=== PATIENT | female | born 1975 | race Caucasian/White ===

== ENCOUNTER → 2018-02-09 | Outpatient (CLI) | payer OTHER ==
--- NOTE | 2018-02-12 07:52 | MM ---
Reason for exam: additional evaluation requested from abnormal screening. Last mammogram was performed 1 month ago. Physical Findings: Nurse did not find any significant physical abnormalities on exam. MG 3D Diag Mammo W/Cad RT Spot compression CC, spot compression MLO, and LM view(s) were taken of the right breast. Prior study comparison: January 22, 2018, mammogram. December 20, 2016, mammogram. August 29, 2008, bilateral digital screening mammogram. The breast tissue is heterogeneously dense. This may lower the sensitivity of mammography. There is no discrete abnormality including area of concern. These results were verbally communicated with the patient and result sheet given to the patient on 02/09/18. ASSESSMENT: Probably benign, BI-RAD 3 RECOMMENDATION: Follow-up diagnostic mammogram of the right breast in 6 months.
== END | disposition home or self-care (01) ==
LOC: RADMAMWWP 14:47
PROVIDERS: ATTEND Obstetrics & Gynecology
DX: R92.8 Other abnormal and inconclusive findings on diagnostic imaging of breast (principal)
CPT/HCPCS: 77065; G0279

== ENCOUNTER → 2018-03-06 | Outpatient (CLI) | payer OTHER ==
--- NOTE | 2018-03-06 08:31 | US ---
EXAMINATION TYPE: US liver DATE OF EXAM: 03/06/2018 COMPARISON: 04/08/2015 CLINICAL HISTORY: 42-year-old female with right upper quad pain R10.11. RUQ pain x couple months, blo ating Technique: Multiple sonographic images of the right upper quadrant are obtained. FINDINGS: Liver Length: 13.2 cm Gallbladder Wall: 0.2 cm CBD: 0.4 cm Right Kidney: 11.6 x 4.0 x 4.6 cm Pancreas: visualized portions wnl, tail limited by overlying midline bowel gas Liver: Normal size with normal homogeneous echotexture. No focal lesion. Gallbladder: wnl Evidence for sonographic Hightower's sign: no CBD: wnl Right Kidney: No hydronephrosis. Visualized portions wnl, inferior pole limited by overlying bowel g as IMPRESSION: Limited visualization of the pancreatic tail and lower pole right kidney. Otherwise, unremarkable so nographic examination of the right upper quadrant.
== END | disposition home or self-care (01) ==
LOC: RADUSWWP 06:54
PROVIDERS: ATTEND Internal Medicine
DX: R10.11 Right upper quadrant pain (principal)
CPT/HCPCS: 76705

== ENCOUNTER 2018-04-18 08:12 | Day surgery (SDC) | payer OTHER ==
[~2018-04-18 08:12] MED LIST: LACTATED RINGERS 1,000 ML IV SCH; LIDOCAINE 1% 20 ML VIAL (10MG/ML) FOR IV START INTRADERMA PRN
[2018-04-18 08:56] VITALS: RESP 18; TEMP 98.8
[2018-04-18] MEDS ORDERED: LACTATED RINGERS 1,000 ML IV ONE (08:56)
[2018-04-18] MEDS ORDERED: PROPOFOL 10 MG/ML 20 ML VIAL IV ONE (09:01)
--- NOTE | 2018-04-18 09:23 | P.PCN ---
Date of Procedure: 04/18/18 Procedure(s) Performed: Brief history: Patient is a pleasant 42-year-old white female, scheduled for an elective upper endoscopy as well as colonoscopy as a part of evaluation of iron deficiency anemia. She denies any GI symptoms. Procedure performed: Esophagogastroduodenoscopy with biopsy Colonoscopy Preoperative diagnosis: Iron deficiency anemia. Anesthesia: MAC Procedure: After informed consent was obtained from the patient was brought into the endoscopy unit and IV sedation was administered by anesthesia under continuous monitoring. Initially upper endoscopy was done. The Olympus GF 160 video endoscope was inserted inserted into the mouth and esophagus intubated without any difficulty and was gradually advanced into the stomach and duodenum and carefully examined. The bulb and second part of the duodenum appeared normal. A 5 mL done from the duodenum to rule out celiac disease. The scope was then withdrawn into the stomach adequately insufflated with air and upon careful examination the antrum had mild patchy areas of erythema and biopsies were done from this area. The body, cardia and fundus appeared normal. The scope was then withdrawn into the esophagus. The GE junction was located at 40 cm to the incisors. It appeared regular with no erythema erosions or ulcerations. Rest of the esophagus appeared normal. Patient tolerated the procedure well. At this time the patient continued to remain sedation. Initial digital rectal examination was normal. Olympus CF 160 video colonoscope was then inserted into the rectum and gradually advanced to the cecum without any difficulty. Careful examination was performed as the scope was gradually being withdrawn. The prep was excellent. terminal ileum was intubated and 20 cm visualized and appeared normal. The cecum, ascending colon, transverse colon, descending colon, sigmoid colon and rectum appeared normal. Retroflexion was performed in the rectum and no lesions were noted. Patient tolerated the procedure well. Impression: 1. Upper endoscopy revealed minimal antral gastritis but no evidence of esophagitis or peptic ulcer disease 2. Colonoscopy was essentially within normal limits with no evidence of colitis or colorectal neoplasia. Recommendations: Findings of this examination were discussed with the patient as well as her family. She was advised to follow with the biopsy results. She will start on iron supplements on a daily basis and monitor his CBC periodically.
[2018-04-18 09:50] VITALS: BP 105/68; PULSE 77
== END 2018-04-18 10:26 | disposition home or self-care (01) ==
LOC: ORWHC2ENDO 08:12
PROVIDERS: ATTEND Internal Medicine Gastroenterology
DX: K29.50 Unspecified chronic gastritis without bleeding (principal); D50.9 Iron deficiency anemia, unspecified; Z87.891 Personal history of nicotine dependence; Z79.899 Other long term (current) drug therapy
CPT/HCPCS: 88305; 45378; 43239; J2704

== ENCOUNTER → 2018-08-13 | Outpatient (CLI) | payer OTHER ==
--- NOTE | 2018-08-13 10:55 | MM ---
Reason for exam: additional evaluation requested from prior study. Last mammogram was performed 6 months ago. Physical Findings: Nurse did not find any significant physical abnormalities on exam. MG 3D Diag Mammo W/Cad RT CC, MLO, and ML view(s) were taken of the right breast. Prior study comparison: February 09, 2018, right breast MG 3d diag mammo w/cad RT. January 22, 2018, mammogram. The breast tissue is heterogeneously dense. This may lower the sensitivity of mammography. No significant new findings when compared with previous films. These results were verbally communicated with the patient and result sheet given to the patient on 08/13/18. ASSESSMENT: Incomplete: need additional imaging evaluation, BI-RAD 0 RECOMMENDATION: Ultrasound of the right breast. (as ordered)
--- NOTE | 2018-08-13 10:57 | USB ---
Reason for exam: additional evaluation requested from abnormal screening. US Breast RT Right complete breast ultrasound includes all four quadrants, the retroareolar region and axilla. Finding demonstrates a 3 x 3 x 3mm hypoechoic lesion at 10 o'clock and a 4 x 3 x 4mm hypoechoic lesion at 11 o'clock. These are too small to characterize and can be reassessed in 6 months. These results were verbally communicated with the patient and result sheet given to the patient on 08/13/18. ASSESSMENT: Probably benign, BI-RAD 3 RECOMMENDATION: Follow-up diagnostic mammogram of both breasts in 6 months. Ultrasound of the right breast in 6 months. [facility]
== END ==
LOC: RADMAMWWP 09:29
PROVIDERS: ATTEND Obstetrics & Gynecology
DX: R92.8 Other abnormal and inconclusive findings on diagnostic imaging of breast (principal)
CPT/HCPCS: 77061; 77065

== ENCOUNTER → 2019-03-11 | Outpatient (CLI) | payer OTHER ==
--- NOTE | 2019-03-12 07:53 | MM ---
Reason for exam: follow-up at short interval from prior study. Last mammogram was performed 7 months ago. History: Taking other hormone for 1 month. Physical Findings: Nurse did not find any significant physical abnormalities on exam. MG 3D Diag Mammo W/Cad KILO Bilateral CC and MLO view(s) were taken. Prior study comparison: August 13, 2018, right breast MG 3d diag mammo w/cad RT. February 09, 2018, right breast MG 3d diag mammo w/cad RT. The breast tissue is heterogeneously dense. This may lower the sensitivity of mammography. Stable to slightly larger circumscribed mass, likely cyst anterior upper outer quadrant left breast. No significant new findings when compared with previous films. These results were verbally communicated with the patient and result sheet given to the patient on 03/11/19. ASSESSMENT: Incomplete: need additional imaging evaluation, BI-RAD 0 RECOMMENDATION: Ultrasound of the right breast. (for pain as ordered) RAMONA
--- NOTE | 2019-03-12 07:55 | USB ---
Reason for exam: follow-up at short interval from prior study. History: Taking other hormone for 1 month. US Breast RT Right complete breast ultrasound includes all four quadrants, the retroareolar region and axilla. Finding demonstrates a 0.4 x 0.3 x 0.4cm hypoechoic lesion at 10 o'clock versus 3mm previously and a 0.4 x 0.3 x 0.4cm hypoechoic lesion at 11 o'clock versus 4mm previously. 1 year diagnostic follow up recommended. These results were verbally communicated with the patient and result sheet given to the patient on 03/11/19. ASSESSMENT: Probably benign, BI-RAD 3 RECOMMENDATION: Follow-up diagnostic mammogram of both breasts in 1 year. (total 2 year follow up right breast)
== END | disposition home or self-care (01) ==
LOC: RADMAMWWP 13:28
PROVIDERS: ATTEND Obstetrics & Gynecology
DX: R92.8 Other abnormal and inconclusive findings on diagnostic imaging of breast (principal)
CPT/HCPCS: 77062; 77066

== ENCOUNTER → 2019-07-30 | Outpatient (CLI) | payer OTHER ==
[2019-07-30 16:00] LABS: Basophils # (A) 0.1 k/uL (0-0.2); Basophils % (A) 1 %; Eosinophils # (A) 0.2 k/uL (0-0.7); Eosinophils % (A) 2 %; HGB 11.7 gm/dL (11.4-16.0); Lymphocytes # (A) 2.6 k/uL (1.0-4.8); Lymphocytes % (A) 32 %; MCH 25.8 pg (25.0-35.0); MCHC 31.6 g/dL (31.0-37.0); MCV 81.6 fL (80.0-100.0); Mean Platelet Volume 7.4; Monocytes # (A) 0.5 k/uL (0-1.0); Monocytes % (A) 6 %; Neutrophils # (A) 4.8 k/uL (1.3-7.7); Neutrophils % (A) 57 %; Platelet Count 326 k/uL (150-450); RBC 4.53 m/uL (3.80-5.40); RDW 14.6 % (11.5-15.5); WBC 8.3 k/uL (3.8-10.6)
== END | disposition home or self-care (01) ==
LOC: LABWHC1 15:33
PROVIDERS: ATTEND Obstetrics & Gynecology
DX: Z01.812 Encounter for preprocedural laboratory examination (principal); N84.0 Polyp of corpus uteri; N94.6 Dysmenorrhea, unspecified; N92.0 Excessive and frequent menstruation with regular cycle
CPT/HCPCS: 36415; 85025

== ENCOUNTER 2019-08-06 07:52 | Day surgery (SDC) | payer OTHER ==
[2019-08-02 18:16] VITALS: BMI 24.7
[~2019-08-06 07:52] MED LIST changes: +DEXAMETHASONE SOD PHOSPHATE 10 MG/ML 1 ML VIAL IV ONE; +Pre Op ABX Message 1 EACH MISC MISCELLANE ONE; +SCOPOLAMINE 1.5MG/72HR PATCH TRANSDERM ONE
[2019-08-06] MEDS: ONDANSETRON 4 MG/2 ML VIAL IVP ONE ×2 (08:32→10:24)
[2019-08-06] MEDS ORDERED: fentaNYL (PF) 50 MCG/ML 2 ML AMP ONE (09:33)
[2019-08-06] MEDS ORDERED: MIDAZOLAM 2 MG/2 ML VIAL ONE (09:33)
[2019-08-06] MEDS ORDERED: PROPOFOL 10 MG/ML 20 ML VIAL IV ONE (09:33)
[2019-08-06] MEDS ORDERED: LIDOCAINE 1% INJ 10MG/ML (20 ML MDV) ONE (09:33)
[2019-08-06] MEDS ORDERED: KETOROLAC 30 MG/ML 1 ML VIAL ONE (09:33)
[2019-08-06] MEDS ORDERED: SUCCINYLCHOLINE CHLORIDE 100 MG/5 ML SYR IV ONE (09:33)
--- NOTE | 2019-08-06 10:05 | P.OP ---
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 The appropriate timeout is performed to assure proper patient and procedural identification. Urine hCG is negative. The cervix, vagina, perineal bodies are all prepped and draped in usual sterile fashion. Examination under anesthesia reveals a small anteverted uterus, negative adnexa bilaterally. The bladder is drained for approximately 400 mL of clear yellow urine. Weighted speculum was placed into the vagina and the anterior lip of the cervix is grasped with a double-tooth tenaculum. Uterus sounds to a depth of 12 cm in the anteverted position. Cervix is gently and systematically dilated using Hanks dilators. The hysteroscope was then introduced and the cavity is distended with sterile saline. Inspection of the cavity reveals a fair amount of shaggy-appearing proliferative tissue, along with several endometrial polyps. The hysteroscope was removed. A medium sharp curette is used and the polyps are removed along with the endometrial curettings. At this time the NovaSure wand is placed and seated. Uterine width of 4.3 cm, length of 6.5 cm is calibrated into the machine. The machine is properly enabled, and for 53 seconds with a power of 154 W the procedure is carried out. When the machine turns off the wand is removed. Hysteroscope was once again placed and the cavity is distended, and is noted to be uniformly blanched. Cervix is clean and dry upon removal of the tenaculum. All sponge needle and instrument counts are correct. Toradol is given prior to leaving the operative suite. Patient is brought back to recovery room in very good condition with stable vital signs including a blood pressure of 122/84 a pulse of 8100% O2 sa turation. Patient will follow-up with me in the office in 2 weeks.
[2019-08-06 10:15] VITALS: TEMP 97
[2019-08-06] MEDS: HYDROmorphone 0.5 MG/0.5 ML SYRINGE IVP PRN ×2 (10:24→10:35)
[2019-08-06 11:17] VITALS: BP 115/73; PULSE 84; RESP 18
== END 2019-08-06 11:38 | disposition home or self-care (01) ==
LOC: OR 07:52
PROVIDERS: ATTEND Obstetrics & Gynecology
DX: N84.0 Polyp of corpus uteri (principal); N92.0 Excessive and frequent menstruation with regular cycle; N94.6 Dysmenorrhea, unspecified; N81.6 Rectocele; Z98.51 Tubal ligation status; B00.9 Herpesviral infection, unspecified; Z83.511 Family history of glaucoma; Z80.8 Family history of malignant neoplasm of other organs or systems; Z87.891 Personal history of nicotine dependence; Z79.899 Other long term (current) drug therapy; Z88.0 Allergy status to penicillin
CPT/HCPCS: 81025; 88305; 58563; J2250; J1100; J2405; J2001; J3010; J1885; J0330; J2704; J1170

== ENCOUNTER → 2020-06-12 | Outpatient (CLI) | payer OTHER ==
--- NOTE | 2020-06-12 12:23 | MM ---
Reason for exam: additional evaluation requested from prior study. Last mammogram was performed 1 year and 3 months ago. History: Taking other hormone for 1 month. Physical Findings: Nurse Summary: 2cm nodule in the left breast at 1 o'clock (nurse colin). MG 3D Diag Mammo W/Cad KILO Bilateral CC and MLO view(s) were taken. Prior study comparison: March 11, 2019, bilateral MG 3d diag mammo w/cad KILO. August 13, 2018, right breast MG 3d diag mammo w/cad RT. The breast tissue is heterogeneously dense. This may lower the sensitivity of mammography. Finding: There is a typically benign 17 mm equal density (isodense), circumscribed oval mass in the subareolar position of the left breast enlarged from comparison. New finding since March 11, 2019 and August 13, 2018. These results were verbally communicated with the patient and result sheet given to the patient on 06/12/20. ASSESSMENT: Incomplete: need additional imaging evaluation, BI-RAD 0 RECOMMENDATION: Ultrasound of the left breast.
--- NOTE | 2020-06-12 12:26 | USB ---
Reason for exam: additional evaluation requested from abnormal screening. History: Taking other hormone for 1 month. US Breast Limited BILAT Right limited breast ultrasound including focal area of concern, retroareolar and axilla demonstrates a 0.3 x 0.4 x 0.2cm cystic lesion at 10 o'clock and a 0.4 x 0.4 x 0.2cm cystic, complex lesion at 11 o'clock, consider biopsy. Left limited breast ultrasound including focal area of concern, retroareolar and axilla demonstrates a 3.2 x 3.0 x 1.2cm solid, hypoechoic, vascular lesion at 1 o'clock. These results were verbally communicated with the patient and result sheet given to the patient on 06/12/20. ASSESSMENT: Suspicious, BI-RAD 4 RECOMMENDATION: Ultrasound core biopsy of the left breast. (anterior) Called Dr. Vasquez's office with mammographic findings and has scheduled an appointment for the patient for 07/08/[address] Quiroz. Biopsy scheduled for 06/23/20 at 1:00. PRELIMINARY REPORT CALLED AND FAXED TO DR. QUIROZ ON 06/12/20.
== END | disposition home or self-care (01) ==
LOC: RADMAMWWP 10:18
PROVIDERS: ATTEND Obstetrics & Gynecology
DX: R92.8 Other abnormal and inconclusive findings on diagnostic imaging of breast (principal)
CPT/HCPCS: 77066; 76642; G0279; 77062

== ENCOUNTER → 2020-06-23 | Day surgery (SDC) | payer OTHER ==
[2020-06-23 12:26] VITALS: RESP 16
[2020-06-23 13:27] VITALS: BP 124/81; PULSE 77; TEMP 98.7
--- NOTE | 2020-06-23 14:37 | USB ---
EXAMINATION TYPE: US biopsy breast VAD LT, MG diagnostic mammo LT wo CAD DATE OF EXAM: 06/23/2020 CLINICAL HISTORY: R92.8 abnormal mammogram. TECHNIQUE: Ultrasound guided core biopsy of left 1:00 breast. COMPARISON: NONE FINDINGS: The procedure of ultrasound guided core biopsy was explained to the patient. Benefits, alt ernatives, and risks were discussed. An informed consent was then obtained. The patient was placed in supine positioning for imaging and for the procedure. The overlying skin w as prepped and draped in usual sterile fashion. Lidocaine buffered with bicarbonate was used as anes thetic into the skin and subcutaneous tissue up to area of concern in the left 1:00 breast. A samir w as made with surgical scalpel. Under ultrasound guidance, a 12-gauge vacuum assisted biopsy gun device was used to obtain 3 core mayte ples. Following this, a biopsy clip was left in lesion. The patient tolerated the procedure well without any immediate complication. The patient was kept in the radiology department for short stay after the procedure and then discharged home in stable condi tion. IMPRESSION: Successful, uncomplicated ultrasound guided core biopsy of area of concern in the left 1: 00 breast, full pathology results to follow.
== END ==
LOC: RADUSWWP 11:55
PROVIDERS: ATTEND Surgery
DX: N60.12 Diffuse cystic mastopathy of left breast (principal); R92.8 Other abnormal and inconclusive findings on diagnostic imaging of breast
CPT/HCPCS: 19083; 77065; 88305; A4648; J2001

== ENCOUNTER 2020-07-24 07:45 | Day surgery (SDC) | payer OTHER ==
[2020-07-21 10:41] VITALS: BMI 25.0
[~2020-07-24 07:45] MED LIST changes: +ACETAMINOPHEN TAB 500 MG TAB PO ONE; +HEPARIN SODIUM,PORCINE 5,000 UNIT/ML 1 ML VIAL SQ ONE; +HYDROmorphone 0.5 MG/0.5 ML SYRINGE IVP PRN; +LIDOCAINE 1% (10MG/ML) FOR IV START INTRADERMA PRN; -LIDOCAINE 1% 20 ML VIAL (10MG/ML) FOR IV START INTRADERMA PRN; +MIDAZOLAM 2 MG/2 ML VIAL IV PRN; +ONDANSETRON 4 MG/2 ML VIAL IVP ONE; -SCOPOLAMINE 1.5MG/72HR PATCH TRANSDERM ONE
[2020-07-24] MEDS ORDERED: ONDANSETRON 4 MG/2 ML VIAL ONE (08:11)
[2020-07-24] MEDS ORDERED: HEPARIN SODIUM,PORCINE 5,000 UNIT/ML 1 ML VIAL ONE (08:11)
[2020-07-24] MEDS ORDERED: ACETAMINOPHEN TAB 500 MG TAB ONE (08:12)
[2020-07-24] MEDS ORDERED: ALPRAZolam 0.5 MG TAB ONE (08:25)
[2020-07-24] MEDS ORDERED: ALPRAZolam 0.5 MG TAB PO ONE (08:34)
--- NOTE | 2020-07-24 08:55 | P.GSHP ---
History of Present Illness H&P Date: 07/24/20 Chief Complaint: Abnormal left breast mammogram 44-year-old female was seen in early June after breast workup showed a 17 mm left breast mass. Ultrasound showed a 3.2 x 3 cm solid lesion at 1:00. She then underwent core biopsy left breast. Findings revealed benign breast parenchyma and background pash. After discussing the case with radiology the biopsy results were felt to be discordant to the imaging studies. For that reason wire localization biopsy was suggested and scheduled. Past Medical History Past Medical History: No Reported History Additional Past Medical History / Comment(s): GENITAL HERPES. Hx Migraines. History of Any Multi-Drug Resistant Organisms: None Reported Past Surgical History: Section, Tubal Ligation, Uterine Ablation Additional Past Surgical History / Comment(s): Pilonidal cyst, Colonoscopy, EGD, Dental extractions. Past Anesthesia/Blood Transfusion Reactions: Motion Sickness Past Psychological History: No Psychological Hx Reported Smoking Status: Former smoker Past Alcohol Use History: Occasional Additional Past Alcohol Use History / Comment(s): SMOKED FOR 10 YRS, QUIT 2007, 1/2 PPD. Additional Drug Use History / Comment(s): CBD Oil use. Aware no use 24 hrs prior to procedure. - Past Family History Father Family Medical History: Cancer Additional Family Medical History / Comment(s): Skin CA. Sister(s) Family Medical History: Cancer Additional Family Medical History / Comment(s): Thyroid Cancer. Medications and Allergies Home Medications Medication Instructions Recorded Confirmed Type Cholecalciferol [Vitamin D3] 1 tab PO DAILY 04/13/18 07/24/20 History [place]-3 Fatty Acids/Fish Oil [Fish 1 tab PO DAILY 04/13/18 07/24/20 History Oil 1,000 mg Softgel] Turmeric Root Extract [Turmeric] 1 tab PO DAILY 04/13/18 07/24/20 History Vitamin B Complex 1 tab PO DAILY 04/13/18 07/24/20 History Aspirin/Acetaminophen/Caffeine 1 each PO DIRECTED PRN 08/02/19 07/24/20 History [Excedrin Migraine Caplet] Cbd Oil 1 applic PO DIRECTED 08/02/19 07/24/20 History Diflucan (Unknown Dose) 1 tab PO DIRECTED PRN 08/02/19 07/24/20 History Femarin 1 tab PO DAILY 08/02/19 07/24/20 History Iron (Unknown Dose) 1 tab PO DAILY 08/02/19 07/24/20 History Thyroid Health 1 tab PO DAILY 08/02/19 07/24/20 History Vitamin B-12 (Unknown Dose) 1 tab PO DAILY 08/02/19 07/24/20 History valACYclovir HCL [Valtrex] 500 mg PO Q12HR PRN 08/02/19 07/24/20 History Allergies Allergy/AdvReac Type Severity Reaction Status Date / Time No Known Allergies Allergy Verified 07/21/20 10:31 Surgical - Exam Vital Signs Temp Pulse Resp BP Pulse Ox 97.9 F 102 H 16 159/84 96 07/24/20 08:25 07/24/20 08:25 07/24/20 08:25 07/24/20 08:25 07/24/20 08:25 Physical exam: General: Well-developed, well-nourished HEENT: Normocephalic, sclerae nonicteric Right breast: No masses, no adenopathy Left breast: Mild induration a recent biopsy site, no adenopathy Abdomen: Nontender, nondistended Extremities: No edema Neuro: Alert and oriented Assessment and Plan (1) Abnormal mammogram of left breast Narrative/Plan: Options reviewed with the patient by phone after discussion with radiology. Short-term follow-up versus wire localization biopsy discussed. We have decided to proceed with wire localization left breast biopsy at this time. Risks of bleeding, infection, scarring, numbness, possible need for further surgery reviewed. She understands and wishes to proceed. Current Visit: Yes Status: Acute Code(s): R92.8 - OTH ABN AND INCONCLUSIVE FINDINGS ON DX IMAGING OF BREAST SNOMED Code(s): 096133775
[2020-07-24] MEDS ORDERED: LIDOCAINE 1% INJ 10MG/ML (20 ML MDV) SQ ONE (09:36)
[2020-07-24] MEDS ORDERED: PROPOFOL 10 MG/ML 20 ML VIAL IV ONE (10:21)
[2020-07-24] MEDS ORDERED: fentaNYL (PF) 50 MCG/ML 2 ML AMP ONE (10:21)
[2020-07-24] MEDS ORDERED: MIDAZOLAM 2 MG/2 ML VIAL ONE (10:21)
[2020-07-24] MEDS ORDERED: LIDOCAINE 1% INJ 10MG/ML (20 ML MDV) ONE (10:21)
[2020-07-24] MEDS ORDERED: ceFAZolin 1,000 MG VIAL ONE (10:21)
[2020-07-24] MEDS ORDERED: SODIUM CHLORIDE 0.9% 100 ML with ceFAZolin 2,000 MG IV ONE ×2 (10:26)
[2020-07-24] MEDS ORDERED: BUPIVACAINE (PF) 0.25% 30 ML VIAL SQ ONE ×2 (10:26→10:45)
[2020-07-24 11:17] VITALS: TEMP 97.5
--- NOTE | 2020-07-24 11:21 | MM ---
EXAMINATION TYPE: MG pre op needle loc LT, MG surgical specimen LT DATE OF EXAM: 07/24/2020 10:21 AM COMPARISON: NONE HISTORY: Clip localization Informed consent was obtained and all the patient's questions were answered. The clip in question was localized mammographically. The standard sterile technique was utilized, as well as appropriate local anesthesia with 1% Lidocaine and bicarbonate. Localization needle followed by placement of a guidewire was performed under mammographic guidance. Verification images demonstrate appropriate deployment of the guidewire. The patient tolerated the procedure well and left the department in stable condition. Specimen radiograph demonstrates the clip in question to reside within the specimen. IMPRESSION: Successful needle localization and open biopsy left breast with pathology results pending . Pathology Results: Benign LEFT BREAST, NEEDLE LOCALIZATION EXCISION: Benign breast with fibrocystic changes, pseudoangiomatous stromal hyperplasia (PASH) and previous biopsy site. Recommendation Follow up ultrasound of the left breast in 6 months. RAMONA
[2020-07-24] MEDS ORDERED: HYDROcodone/APAP 5-325MG 1 EACH TAB PO PRN (11:25)
[2020-07-24] MEDS ORDERED: NALOXONE 0.4 MG/ML 1 ML VIAL IV PRN (11:25)
--- NOTE | 2020-07-24 11:28 | P.OP ---
Date of Procedure: 07/24/20 Procedure(s) Performed: PREOPERATIVE DIAGNOSIS: Abnormal left mammogram POSTOPERATIVE DIAGNOSIS: Same PROCEDURE: Left Breast wire localization biopsy SURGEON: Richie EBL: Minimal ANESTHESIA: Sedation plus local COMPLICATIONS: None OPERATIVE PROCEDURE: Patient was placed on the operating room table in the sup ine position. The patient's breast was prepped and draped in usual sterile fashion. A curvilinear incision was made adjacent to the ere areola. The wire was then dissected and brought out through the incision. I followed the wire down into the breast tissue. The breast tissue around the tip of the wire was fully excised using electrocautery. The specimen was sent for specimen radiogram. As we were dissecting the tissues of the clip was identified and was included with the specimen. The subcutaneous tissues were inspected. No bleeding was seen. The subcutaneous tissues were closed using 3-0 Vicryl sutures. The skin was closed using a running 4-0 Monocryl stitch. Skin glue and sterile dressings were applied. DISPOSITION: Stable to recovery room
[2020-07-24 12:13] VITALS: RESP 18
[2020-07-24 12:41] VITALS: BP 123/67; PULSE 78
== END 2020-07-24 12:43 | disposition home or self-care (01) ==
LOC: OR 07:45
PROVIDERS: ATTEND Surgery
DX: N60.12 Diffuse cystic mastopathy of left breast (principal); N64.89 Other specified disorders of breast; A63.0 Anogenital (venereal) warts; B00.9 Herpesviral infection, unspecified; E07.9 Disorder of thyroid, unspecified; Z98.890 Other specified postprocedural states; Z98.51 Tubal ligation status; Z87.891 Personal history of nicotine dependence; Z86.69 Personal history of other diseases of the nervous system and sense organs; Z87.898 Personal history of other specified conditions; Z97.2 Presence of dental prosthetic device (complete) (partial); Z83.511 Family history of glaucoma; Z80.8 Family history of malignant neoplasm of other organs or systems; Z83.79 Family history of other diseases of the digestive system
CPT/HCPCS: 81025; 88307; 76098; 19281; 19120; J2250; J1644; J1100; J2405; J0690; J2001; J3010; J2704

== ENCOUNTER → 2021-03-18 | Outpatient (CLI) | payer OTHER ==
--- NOTE | 2021-03-18 09:49 | USB ---
Reason for exam: clinical finding. History: Benign MG pre op needle loc LT of the left breast, July 24, 2020. Benign US biopsy breast VAD LT of the left breast, June 23, 2020. Taking other hormone for 1 month. Indicated problem(s): palpable abnormality in the left breast. Physical Findings: Nurse did not find any significant physical abnormalities on exam. US Breast Limited LT Technologist: Monie Maravilla Left limited breast ultrasound including focal area of concern, retroareolar and axilla demonstrates a 2.1 x 2.0 x 1.1cm solid lesion at 1 o'clock and a 0.4 x 0.3 x 0.3cm cystic lesion at 1 o'clock. Decreaed in size after biopsy and excision but still present. Scanned 12-2 o'clock. These results were verbally communicated with the patient and result sheet given to the patient on 03/18/21. ASSESSMENT: Probably benign, BI-RAD 3 RECOMMENDATION: Follow-up diagnostic mammogram of both breasts in 3 months. Ultrasound of the left breast in 3 months. Back on schedule.
== END | disposition home or self-care (01) ==
LOC: RADUSWWP 08:02
PROVIDERS: ATTEND Surgery
DX: N60.02 Solitary cyst of left breast (principal)

== ENCOUNTER → 2021-07-27 | Outpatient (CLI) | payer OTHER ==
--- NOTE | 2021-07-27 11:15 | MM ---
Reason for exam: additional evaluation requested from prior study. Last mammogram was performed 1 year and 1 month ago. History: Benign MG pre op needle loc LT of the left breast, July 24, 2020. Benign US biopsy breast VAD LT of the left breast, June 23, 2020. Taking other hormone for 1 month. Physical Findings: Nurse did not find any significant physical abnormalities on exam. MG 3D Diag Mammo W/Cad KILO Bilateral CC and MLO view(s) were taken. Prior study comparison: June 23, 2020, left breast MG diagnostic mammo LT wo CAD. June 12, 2020, bilateral MG 3d diag mammo w/cad KILO. March 11, 2019, bilateral MG 3d diag mammo w/cad KILO. The breast tissue is heterogeneously dense. This may lower the sensitivity of mammography. Post surgical changes left breast. These results were verbally communicated with the patient and result sheet given to the patient on 07/27/21. ASSESSMENT: Benign, BI-RAD 2 RECOMMENDATION: Routine screening mammogram of both breasts in 1 year.
--- NOTE | 2021-07-27 11:17 | USB ---
Reason for exam: follow-up at short interval from prior study. History: Benign MG pre op needle loc LT of the left breast, July 24, 2020. Benign US biopsy breast VAD LT of the left breast, June 23, 2020. Taking other hormone for 1 month. US Breast Limited LT Left limited breast ultrasound including focal area of concern, retroareolar and axilla demonstrates a 1.8 x 1.9 x 1.0cm oval, hypoechoic lesion at 1 o'clock, prior biopsy site, clip seen, a 0.3 x 0.2 x 0.2cm oval, cystic lesion at 1 o'clock and a 1.7 x 1.4 x 0.6cm oval, lymph node at the axilla. These results were verbally communicated with the patient and result sheet given to the patient on 07/27/21. ASSESSMENT: Benign, BI-RAD 2 RECOMMENDATION: Routine screening mammogram of both breasts in 1 year.
== END | disposition home or self-care (01) ==
LOC: RADMAMWWP 08:14
PROVIDERS: ATTEND Surgery
DX: R92.2 Inconclusive mammogram (principal); N60.02 Solitary cyst of left breast
CPT/HCPCS: 77066; 76642; G0279; 77062

== ENCOUNTER → 2022-09-05 | Outpatient (CLI) | payer OTHER ==
--- NOTE | 2022-09-05 08:45 | MM ---
Reason for Exam: Additional evaluation requested from abnormal screening. Last mammogram was performed 1 year(s) and 2 month(s) ago. Patient History: Menarche at age 11. First Full-Term at age 17. 07/24/2020, Benign Core Biopsy on the left side. 06/23/2020, Benign Core Biopsy on the left side. Last menstrual period: 04/25/2022 Risk Values: Pham 5 year model risk: 1.4%. NCI Lifetime model risk: 10.4%. Prior Study Comparison: 08/29/2008 Bilateral Screening Mammogram, [facility]. 12/20/2016 Screening Mammogram, Unknown. 01/22/2018 Screening Mammogram, Unknown. 02/09/2018 Right Diagnostic Mammogram, [facility]. 08/13/2018 Right Diagnostic Mammogram, [facility]. 08/13/2018 Right Diagnostic Ultrasound, [facility]. 03/11/2019 Bilateral Diagnostic Mammogram, [facility]. 03/11/2019 Right Diagnostic Ultrasound, [facility]. 06/12/2020 Bilateral Diagnostic Mammogram, [facility]. 06/12/2020 Bilateral Diagnostic Ultrasound, [facility]. 06/23/2020 Left Diagnostic Mammogram, [facility]. 03/18/2021 Left Diagnostic Ultrasound, [facility]. 07/27/2021 Bilateral Diagnostic Mammogram, [facility]. 07/27/2021 Left Diagnostic Ultrasound, [facility]. Tissue Density: The breast tissue is heterogeneously dense. This may lower the sensitivity of mammography. Findings: Analyzed By CAD. No cluster of worrisome calcifications within either breast. No new suspicious mass within either breast. Postsurgical changes of the left breast redemonstrated. Overall Assessment: Benign, BI-RAD 2 Management: Screening Mammogram of both breasts in 1 year. A clinical breast exam by your physician is recommended on an annual basis and results should be correlated with mammographic findings. This exam should not preclude additional follow-up of suspicious palpable abnormalities. Results were given to the patient verbally at the time of exam. Electronically signed and approved by: Rajesh Muñoz D.O.
[2022-09-05 15:29] LABS: Thyroid Peroxidase Antibodies <9.0 U/mL (0.0-33.0)
== END | disposition home or self-care (01) ==
LOC: RADMAMWWP 08:19
PROVIDERS: ATTEND Family Medicine
DX: R92.8 Other abnormal and inconclusive findings on diagnostic imaging of breast (principal); E07.9 Disorder of thyroid, unspecified
CPT/HCPCS: 77062; 77066; 86376; 86800

== ENCOUNTER → 2022-09-12 | Outpatient (CLI) | payer OTHER ==
--- NOTE | 2022-09-12 13:37 | US ---
EXAMINATION TYPE: US thyroid st tissue head/neck DATE OF EXAM: 09/12/2022 COMPARISON: NONE CLINICAL HISTORY: E01.0 THYROMEGALY. Patient states her neck feels sore. Patient states right thyroi d appears slightly enlarged per doctor. No abnormal labs. GLAND SIZE: Right Lobe: 4.8 x 1.2 x 1.3 cm Overall Parenchyma: homogenous. Left Lobe: 3.9 x 1.4 x 1.1 cm Overall Parenchyma: homogeneous Isthmus Thickness: 0.2 cm NODULES RIGHT: # of nodules measured on right: 0 LEFT: # of nodules measured on left: 1 1. 0.4 x 0.3 x 0.3 cm, upper mid, solid or almost completely solid, hypoechoic nodule, which is wid er than tall, with ill-defined margins, with echogenic foci. Consistent with TR 4. Prior size: No prior ISTHMUS: # of nodules measured in the isthmus: 0 Bilateral neck scanned, no evidence of lymphadenopathy. IMPRESSION: Nonenlarged thyroid gland with 0.4 cm right thyroid lobe TR 4 nodule. No follow-up or fine-needle asp iration is recommended based on size. 2017 ACR TI-RADS LEVEL: TR-RADS 4 - Moderately Suspicious: Follow if > 1 cm, FNA if > 1.5 cm *Highest TI-RADS level nodule reported
== END | disposition home or self-care (01) ==
LOC: RADUSWWP 12:47
PROVIDERS: ATTEND Otolaryngology
DX: E01.0 Iodine-deficiency related diffuse (endemic) goiter (principal)
CPT/HCPCS: 76536

== ENCOUNTER → 2022-10-03 | Outpatient (CLI) | payer OTHER ==
--- NOTE | 2022-10-03 10:38 | CT ---
EXAMINATION TYPE: CT soft tissue neck w con DATE OF EXAM: 10/03/2022 10:11 AM COMPARISON: None HISTORY: Neck swelling CT DLP: 398.3 mGycm Automated exposure control for dose reduction was used. CONTRAST: CT scan of the neck is performed following with IV Contrast, patient injected with 70 mL of Isovue 30 0. Axial images are obtained, coronal and sagittal reformatted images are reviewed. FINDINGS: The lungs are clear. Thyroid tissue enhances normally. Calcification in the left thyroid. Airway is patent. No pathologic adenopathy osseous structures intact. Hypertrophic degenerative change involving the lower cervical s pine. Submandibular and parotid glands are symmetric and normal in appearance. Oropharynx and nasopharynx. Orbits have a normal appearance. Intracranial structures. Vocal cords are normal. Base of the tongue is symmetric. IMPRESSION: No pathologic adenopathy or suspicious appearing mass.
== END | disposition home or self-care (01) ==
LOC: RADCTMAIN 09:30
PROVIDERS: ATTEND Otolaryngology
DX: R22.1 Localized swelling, mass and lump, neck (principal)
CPT/HCPCS: 70491; Q9967

== ENCOUNTER → 2023-03-30 | Outpatient (CLI) | payer OTHER ==
--- NOTE | 2023-03-30 16:03 | US ---
EXAMINATION TYPE: US thyroid st tissue head/neck DATE OF EXAM: 03/30/2023 COMPARISON: CT 10/03/2022 CLINICAL INDICATION: Female, 47 years old with history of E04.1 nontoxix single thyroid nodule; thy n odule GLAND SIZE: Right Lobe: 5.2 x 1.5 x 1.2 cm Overall Parenchyma: homogenous Left Lobe: 4.8 x 1.0 x 1.7 cm Overall Parenchyma: homogeneous Isthmus Thickness: .3 cm NODULES RIGHT: # of nodules measured on right: 0 LEFT: # of nodules measured on left: 1 1. 0.3 X 0.2 x 0.3 cm, compatible with calcification on prior CT. ISTHMUS: # of nodules measured in the isthmus: 0 Bilateral neck scanned, no evidence of lymphadenopathy. IMPRESSION: No thyroid nodules. Left thyroid gland calcification as seen on prior CT.
== END | disposition home or self-care (01) ==
LOC: RADUSWWP 14:41
PROVIDERS: ATTEND Otolaryngology
DX: E04.1 Nontoxic single thyroid nodule (principal)
CPT/HCPCS: 76536

== ENCOUNTER → 2023-09-06 | Outpatient (CLI) | payer OTHER ==
--- NOTE | 2023-09-07 10:53 | MM ---
Reason for Exam: Screening (asymptomatic). Last screening mammogram was performed 12 month(s) ago. Patient History: Menarche at age 11. First Full-Term at age 17. Postmenopausal. Patient has history of breast feeding. 07/24/2020, Benign MG pre op needle loc LT on the left side. 06/23/2020, Benign Core Biopsy on the left side. Risk Values: Pham 5 year model risk: 1.3%. NCI Lifetime model risk: 10.2%. Prior Study Comparison: 06/23/2020 Left Diagnostic Mammogram, [facility]. 07/27/2021 Bilateral Diagnostic Mammogram, [facility]. 09/05/2022 Bilateral MG 3D diag mammo w/cad [facility], [facility]. Tissue Density: The breast tissue is heterogeneously dense. This may lower the sensitivity of mammography. Findings: Analyzed By CAD. There is no suspicious group of microcalcifications or new suspicious mass in either breast. Overall Assessment: Benign, BI-RAD 2 Management: Screening Mammogram of both breasts in 1 year. . Patient should continue monthly self-breast exams. A clinical breast exam by your physician is recommended on an annual basis. This exam should not preclude additional follow-up of suspicious palpable abnormalities. Note on Pham scores and lifetime risk: 1. A Pham score greater than 3% is considered moderate risk. If this is the case, consider specialist referral to assess eligibility for a risk reducing agent. 2. If overall lifetime risk for the development of breast cancer is 20% or higher, the patient may qualify for future screening with alternating mammogram and breast MRI. Electronically signed and approved by: Yuval Larsen M.D. Radiologis
== END | disposition home or self-care (01) ==
LOC: RADMAMWWP 07:15
PROVIDERS: ATTEND Obstetrics & Gynecology
DX: Z12.31 Encounter for screening mammogram for malignant neoplasm of breast (principal); Z78.0 Asymptomatic menopausal state
CPT/HCPCS: 77063; 77067

== ENCOUNTER → 2023-10-02 | Outpatient (CLI) | payer OTHER ==
--- NOTE | 2023-10-02 09:53 | US ---
EXAMINATION TYPE: US thyroid st tissue head/neck DATE OF EXAM: 10/02/2023 COMPARISON: US 03/30/2023 CLINICAL INDICATION: Female, 47 years old with history of E04.1 SINGLE THYROID NODULE; Thyroid nodule . GLAND SIZE: Right Lobe: 5.0 x 1.0 x 1.4 cm Overall Parenchyma: homogeneous Left Lobe: 4.8 x 1.6 x 1.0 cm Overall Parenchyma: homogeneous Isthmus Thickness: 0.2 cm NODULES RIGHT: # of nodules measured on right: 0 LEFT: # of nodules measured on left: 1 1. 0.4 X 0.5 x 0.4 cm, upper mid, solid or almost completely solid, hyperechoic nodule, which is wi helen than tall, with smooth margins, with echogenic foci. TR 5 Prior size: 0.3 x 0.3 x 0.2 cm *Nodule has hypoechoic border. ISTHMUS: # of nodules measured in the isthmus: 0 Bilateral neck scanned, no evidence of lymphadenopathy. IMPRESSION: 1. Subcentimeter nodule left lobe thyroid. This could be moderately suspicious. Consider follow-up ex am in one year. 2017 ACR TI-RADS LEVEL: TR-RADS 4 - Moderately Suspicious: Follow if > 1 cm, FNA if > 1.5 cm *Highest TI-RADS level nodule reported
== END | disposition home or self-care (01) ==
LOC: RADUSWWP 08:09
PROVIDERS: ATTEND Otolaryngology
DX: E04.1 Nontoxic single thyroid nodule (principal)
CPT/HCPCS: 76536

== ENCOUNTER → 2024-07-09 | Outpatient (CLI) | payer OTHER | END | disposition home or self-care (01) | LOC: LABPRL 11:05 | PROVIDERS: ATTEND Family Medicine | DX: E78.5 Hyperlipidemia, unspecified (principal) | CPT/HCPCS: 80053; 80061; 85652; 86038; 86431 ==

== ENCOUNTER → 2024-09-09 | Outpatient (CLI) | payer OTHER ==
--- NOTE | 2024-09-09 13:15 | MM ---
Reason for Exam: Screening (asymptomatic). Last screening mammogram was performed 12 month(s) ago. Patient History: Menarche at age 11. First Full-Term at age 17. Postmenopausal. Patient has history of breast feeding. 07/24/2020, Benign MG pre op needle loc LT on the left side. 06/23/2020, Benign Core Biopsy on the left side. Risk Values: Pham 5 year model risk: 1.2%. NCI Lifetime model risk: 9.9%. Prior Study Comparison: 07/27/2021 Bilateral Diagnostic Mammogram, [facility]. 09/05/2022 Bilateral MG 3D diag mammo w/cad [facility], [facility]. 09/06/2023 Bilateral MG 3D screening mammo w/cad, [facility]. Tissue Density: There are scattered areas of fibroglandular density. Findings: Analyzed By CAD. Left breast surgical clips. Right breast: There is no suspicious group of microcalcifications or new suspicious mass. Left breast: There is no suspicious group of microcalcifications or new suspicious mass. Overall Assessment: Negative, BI-RAD 1 Management: Screening Mammogram of both breasts in [address] [facility] will attempt to contact patient to return for supplemental views and ultrasound if indicated. Patient should continue monthly self-breast exams. A clinical breast exam by your physician is recommended on an annual basis. This exam should not preclude additional follow-up of suspicious palpable abnormalities. Note on Pham scores and lifetime risk: 1. A Pham score greater than 3% is considered moderate risk. If this is the case, consider specialist referral to assess eligibility for a risk reducing agent. 2. If overall lifetime risk for the development of breast cancer is 20% or higher, the patient may qualify for future screening with alternating mammogram and breast MRI. [facility], , 09/09/2024 12:47 PM. Electronically signed and approved by: Gurinder Healy DO
== END | disposition home or self-care (01) ==
LOC: RADMAMWWP 11:19
PROVIDERS: ATTEND Obstetrics & Gynecology
CPT/HCPCS: 77063; 77067

== ENCOUNTER → 2025-01-20 | Outpatient (CLI) | payer OTHER ==
--- NOTE | 2025-01-20 14:29 | US ---
EXAMINATION TYPE: US thyroid st tissue head/neck DATE OF EXAM: 01/20/2025 COMPARISON: 10/02/23 CLINICAL INDICATION: Female, 49 years old with history of E04.1 THYROID NODULES; follow up TECHNIQUE: Grayscale and color Doppler imaging of the thyroid gland. FINDINGS: GLAND SIZE: Right Lobe: 4.8 x 1.2 x 1.4 cm Overall Parenchyma: homogeneous Left Lobe: 4.3 x 1.6 x 1.0 cm Overall Parenchyma: homogeneous Isthmus Thickness: 0.2 cm NODULES RIGHT: # of nodules measured on right: 0 LEFT: # of nodules measured on left: 1 1. 0.4 X 0.4 x 0.4 cm, upper mid, solid or almost completely solid, hypoechoic nodule, which is wid er than tall, with smooth margins, with echogenic foci. Prior size: 0.4 x 0.5 x 0.4 cm ISTHMUS: # of nodules measured in the isthmus: 0 Bilateral neck scanned, no evidence of lymphadenopathy. IMPRESSION: No suspicious thyroid nodules 2017 ACR TI-RADS LEVEL: TI-RADS 1 - BENIGN: No FNA *Highest TI-RADS level nodule reported [email or web address] [facility], , 01/20/2025 2:26 PM
== END | disposition home or self-care (01) ==
LOC: RADUSWWP 12:56
PROVIDERS: ATTEND Family Medicine
DX: E04.1 Nontoxic single thyroid nodule (principal)
CPT/HCPCS: 76536

== ENCOUNTER → 2025-06-23 | Outpatient (CLI) | payer OTHER ==
--- NOTE | 2025-06-23 17:38 | CT ---
EXAMINATION TYPE: CT abdomen pelvis w con CT DLP: 613 mGycm, Automated exposure control for dose reduction was used. DATE OF EXAM: 06/23/2025 5:12 PM COMPARISON: Ultrasound liver 03/06/2018 CLINICAL INDICATION:Female, 49 years old with history of R10.11 RUQ pain, R10.31 RLQ pain; RT FLANK P AIN TECHNIQUE: Standard CT of the abdomen and pelvis following the administration of 100 cc of Isovue 3 00 IV contrast material and oral contrast. Coronal and sagittal reformats were performed. FINDINGS: LOWER CHEST: Unremarkable ABDOMEN LIVER: Subcentimeter right hepatic lobe hypodense focus likely representing a cyst. GALLBLADDER AND BILE DUCTS: Unremarkable. PANCREAS: Unremarkable. SPLEEN: Unremarkable. ADRENAL GLANDS: Unremarkable. KIDNEYS AND URETERS: No evidence of hydronephrosis or renal calculus. The kidneys enhance symmetrica lly. A couple small right renal cortical cysts. No follow-up recommended. Contrast is demonstrated wi thin both collecting systems and proximal ureters on the delayed phase. Prominent right extrarenal pe lvis. PELVIS BLADDER: Unremarkable REPRODUCTIVE: Unremarkable. ABDOMEN & PELVIS STOMACH AND BOWEL: Stomach and duodenum are unremarkable. Enteric contrast reaches the distal transve rse colon. The appendix is mildly distended measuring up to 8 mm without wall thickening and strandin g inflammatory changes. It is gas and contrast-filled. No evidence for acute appendicitis. No evidenc e of bowel obstruction. PERITONEUM: No evidence of pneumoperitoneum or free fluid. VASCULATURE: No evidence of aortic aneurysm. Left-sided pelvic phleboliths. MUSCULOSKELETAL: No acute osseous abnormalities LYMPH NODES: No evidence for lymphadenopathy. SOFT TISSUE/ABDOMINAL WALL: Small fat filled umbilical hernia. IMPRESSION: No CT evidence for acute abdominal/pelvic process. [facility], , 06/23/2025 5:36 PM
== END | disposition home or self-care (01) ==
LOC: RADCTMAIN 15:10
PROVIDERS: ATTEND Nurse Practitioner Family
DX: K42.9 Umbilical hernia without obstruction or gangrene (principal)
CPT/HCPCS: 74177; Q9967